=== PATIENT | male | born 1990 | race Caucasian/White ===

== ENCOUNTER 2017-03-20 09:39 | Emergency (ER) | payer SELFPAY ==
[2017-03-20] MEDS ORDERED: Aluminum Hydroxide/Magnesium Hydroxide Susp (30 mL) PO STA (10:05)
[2017-03-20] MEDS ORDERED: Sodium Chloride 0.9% 1,000 ML IV ONE (10:05)
[2017-03-20] MEDS ORDERED: Aluminum Hydroxide/Magnesium Hydroxide Susp (30 mL) ONE (10:14)
[2017-03-20] MEDS ORDERED: Sodium Chloride 0.9% 1,000 ML ONE (10:14)
[2017-03-20 10:38] LABS: BASO # 0.1 K/uL (0.0-0.2); BASO % 0.3 % (0.0-2.0); EOS # 0.1 K/uL (0.0-0.7); EOS % 0.5 % (0.0-4.0); HEMOGLOBIN 14.9 g/dL (12.0-18.0); LYMPH # 1.3 K/uL (1.0-4.3); LYMPH % 6.5 % (20.0-40.0); MEAN CELL VOLUME 94.4 fL (80.0-94.0); MEAN CORPUSCULAR HGB CONC 33.9 g/dL (33.0-37.0); MEAN PLATELET VOLUME 8.1 fL (7.2-11.7); MONO % 4.9 % (0.0-10.0); NEUT # 17.5 K/uL (1.8-7.0); NEUT % 87.8 % (50.0-75.0); NRBC % 0.1 % (0.0-2.0); PLATELET COUNT 450 K/uL (130-400); RBC 4.65 Mil/uL (4.40-5.90); RED CELL DISTRIBUTION WIDTH 13.6 % (11.5-14.5); WHITE BLOOD COUNT 19.9 K/uL (4.8-10.8)
[2017-03-20 10:46] LABS: ALBUMIN 4.4 g/dL (3.5-5.0)
[2017-03-20 10:48] LABS: GFR AFRICAN-AMERICAN > 60; GFR NON-AFRICAN AMERICAN > 60
[2017-03-20 10:49] LABS: ALB/GLOB RATIO 1.1 (1.0-2.1); ALT/SGPT 42 U/L (21-72); AST/SGOT 38 U/L (17-59); BLOOD UREA NITROGEN 12 mg/dL (9-20); CALCIUM 9.3 mg/dl (8.6-10.4); LIPASE 42 U/L (23-300)
[2017-03-20] MEDS ORDERED: Iohexol 300 100 ML IJ ONE (10:54)
[2017-03-20 10:56] LABS: BANDS 1 % (0-2); TOTAL CELLS COUNTED 100
[2017-03-20 10:57] LABS: LYMPHOCYTE 7 % (20-40); MONOCYTE 5 % (0-10); NEUTROPHIL 87 % (50-75); PLATELET ESTIMATE SLIGHTLY DECREASED (NORMAL)
--- NOTE | 2017-03-20 12:01 | C.PDOC ---
History Of Present Illness Patient is a 26 y/o male that presents to the ED for evaluation of nausea, vomiting, and epigastric abdominal pain since 4:00 this morning. Patient states he ate pasta, and canned tomatoes last night at 22:00, and believes it may have caused the symptoms today. Otherwise, denies any chest pain, shortness of breath , fever, chills, diarrhea, or any other associated symptoms at this time. Time Seen by Provider: 03/20/17 09:54 Chief Complaint (Nursing): Abdominal Pain History Per: Patient History/Exam Limitations: no limitations Onset/Duration Of Symptoms: Hrs Current Symptoms Are (Timing): Still Present Location Of Pain/Discomfort: Epigastric Radiation Of Pain To:: None Quality Of Discomfort: "Pain" Associated Symptoms: Nausea, Vomiting. denies: Fever, Chills, Diarrhea, Loss Of Appetite, Back Pain, Chest Pain, Constipation, Urinary Symptoms Exacerbating Factors: None Alleviating Factors: None Last Bowel Movement: Yesterday Additional History Per: Patient Past Medical History Reviewed: Historical Data, Nursing Documentation, Vital Signs Vital Signs: Last Vital Signs Temp 98.5 F 03/20/17 12:59 Pulse 71 03/20/17 12:59 Resp 18 03/20/17 12:59 BP 133/82 03/20/17 12:59 Pulse Ox 100 03/20/17 13:42 Family History: States: No Known Family Hx - Social History Hx Alcohol Use: Yes Hx Substance Use: No - Immunization History Hx Tetanus Toxoid Vaccination: Yes Hx Influenza Vaccination: No Hx Pneumococcal Vaccination: No Review Of Systems Except As Marked, All Systems Reviewed And Found Negative. Constitutional: Negative for: Fever, Chills Cardiovascular: Negative for: Chest Pain Respiratory: Negative for: Shortness of Breath Gastrointestinal: Positive for: Nausea, Vomiting, Abdominal Pain. Negative for : Diarrhea Genitourinary: Negative for: Dysuria, Frequency, Hematuria Musculoskeletal: Negative for: Back Pain Skin: Negative for: Rash Physical Exam - Physical Exam Appears: Non-toxic, No Acute Distress Skin: Normal Color, Warm, Dry Head: Atraumatic, Normacephalic Eye(s): bilateral: Normal Inspection, EOMI Nose: Normal Oral Mucosa: Moist Neck: Normal ROM, Supple Chest: Symmetrical Cardiovascular: Rhythm Regular, No Murmur Respiratory: Normal Breath Sounds, No Rales, No Rhonchi, No Wheezing Gastrointestinal/Abdominal: Soft, Tenderness (epigastric), No Guarding, No Rebound Back: No CVA Tenderness, No Vertebral Tenderness Extremity: Normal ROM Neurological/Psych: Oriented x3, Normal Speech, Other (anxious) ED Course And Treatment - Laboratory Results Result Diagrams: 03/20/17 10:32 03/20/17 10:32 O2 Sat by Pulse Oximetry: 100 (on RA) Pulse Ox Interpretation: Normal - CT Scan/US Abd & pelvis CT Other Rad Studies (CT/US): Read By Radiologist, Radiology Report Reviewed CT/US Interpretation: Findings: Mild atelectasis at the lung bases. No pleural or pericardial effusion. Prominent liver with mild fatty infiltration. Distended gallbladder. Prominent fold noted at the head of the gallbladder. Spleen appears preserved. Adrenal glands appear preserved. Pancreas appears preserved. Upper abdominal bowel appears preserved. Right kidney: No calculi or hydronephrosis. Left Kidney: No calculi or hydronephrosis. Mild thickening versus underdistention of the urinary bladder. Heterogeneous prostate. Mild thickening versus underdistention of the descending colon, sigmoid colon, and portions of the ascending colon. Clinical correlation. Few scattered colonic diverticuli. Appendix not well visualized. Few shotty para-aortic and inguinal lymph nodes. Few shotty mesenteric lymph nodes. Mild degenerative changes in the spine and hips. Impression: Mild thickening versus underdistention of the descending colon, sigmoid colon, and portions of the ascending colon. Clinical correlation. Mild thickening of the stomach wall. Clinical correlation. Appendix not well identified. Prominent liver with mild fatty infiltration. Distended gallbladder. Prominent fold noted at the head of the gallbladder. Mild thickening versus underdistention of the urinary bladder. Additional findings as above. Progress Note: Blood work, abd & pelvis CT ordered and reviewed. Patient was given IV fluids, Pepcid, Zofran, and Maalox. On re-exam, patient is resting comfortably, no acute distress. Patient reports improvement of pain, feels better. Discussed with pt elevated WBC, unable to visualize appendix and instructed to return to ER if symptoms persist or worsen. PT tolerating PO. Abdomen soft , nontender on deep palpation including RLQ. Instructed follow up with PMD in 1-2 days for re-evaluation. Case discussed with Dr Owen who evlauted labs and CT result and agrees upon plan and treatment. Disposition - Disposition Disposition: HOME/ ROUTINE Disposition Time: 13:00 Condition: STABLE Additional Instructions: Follow up with your primary medical doctor or clinic in 2-5 days for further evaluation. Take medications as prescribed. Return to the emergency department at any time if symptoms persist or worsen. Prescriptions: Ondansetron ODT [Zofran ODT] 1 odt PO BID PRN #6 odt PRN Reason: Nausea/Vomiting Instructions: Acute Abdominal Pain (ED) - Clinical Impression Clinical Impression: Abdominal pain - PA / GOLD [employer] / Resident Statement MD/DO has reviewed & agrees with the documentation as recorded. - Scribe Statement The provider has reviewed the documentation as recorded by the Shilpiibe Maryann Mattson All medical record entries made by the Taisha were at my direction and personally dictated by me. I have reviewed the chart and agree that the record accurately reflects my personal performance of the history, physical exam, medical decision making, and the department course for this patient. I have also personally directed, reviewed, and agree with the discharge instructions and disposition.
--- NOTE | 2017-03-20 12:09 | CT ---
CT abdomen and pelvis History: Abdominal pain. Comparison: None available. Technique: Multiple contiguous axial images were performed through the abdomen and pelvis with the use of intravenous contrast. Subsequently, sagittal coronal reformatted images were obtained. This CT exam was performed using one or more of the following dose reduction techniques: Automated exposure control, adjustment of the mA and/or kV according to patient size, and/or use of iterative reconstruction technique. Findings: Mild atelectasis at the lung bases. No pleural or pericardial effusion. Prominent liver with mild fatty infiltration. Distended gallbladder. Prominent fold noted at the head of the gallbladder. Spleen appears preserved. Adrenal glands appear preserved. Pancreas appears preserved. Upper abdominal bowel appears preserved. Right kidney: No calculi or hydronephrosis. Left Kidney: No calculi or hydronephrosis. Mild thickening versus underdistention of the urinary bladder. Heterogeneous prostate. Mild thickening versus underdistention of the descending colon, sigmoid colon, and portions of the ascending colon. Clinical correlation. Few scattered colonic diverticuli. Appendix not well visualized. Few shotty para-aortic and inguinal lymph nodes. Few shotty mesenteric lymph nodes. Mild degenerative changes in the spine and hips. Impression: Mild thickening versus underdistention of the descending colon, sigmoid colon, and portions of the ascending colon. Clinical correlation. Mild thickening of the stomach wall. Clinical correlation. Appendix not well identified. Prominent liver with mild fatty infiltration. Distended gallbladder. Prominent fold noted at the head of the gallbladder. Mild thickening versus underdistention of the urinary bladder. Additional findings as above.
[2017-03-20 13:00] VITALS: BP 133/82; PULSE 71; RESP 18; TEMP 98.5
[2017-03-20 13:42] VITALS: O2SAT 100
== END 2017-03-20 13:34 | disposition home or self-care (01) ==
LOC: C.ER 09:39
DX: R10.13 Epigastric pain (principal)
CPT/HCPCS: 74177; 80053; 83690; 85025; 96361; 96374; 96375; 99285; J2405; J7040; Q9967